=== PATIENT | female | born 1950 ===

== ENCOUNTER 2024-02-13 09:42 | Emergency (ER) | payer MEDICARE, OTHER, SELFPAY ==
[2024-02-13 09:44] VITALS: BP 194/91
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
== END 2024-02-13 10:28 | disposition home or self-care (01) ==
LOC: EMR 09:42
PROVIDERS: EMERGENCY PHYSICIAN Student in an Organized Health Care Education/Training Program
DX: S06.0X0A Concussion without loss of consciousness, initial encounter (principal); V18.3XXA Person boarding or alighting a pedal cycle injured in noncollision transport accident, initial encounter
CPT/HCPCS: 99284; 70450